=== PATIENT | male | born 1975 | race Caucasian/White ===

== ENCOUNTER 2017-12-25 22:55 | Emergency (ER) | payer SELFPAY ==
[~2017-12-25] VITALS: Ht 182.9 cm; Wt 89.8 kg
[2017-12-25 23:00] VITALS: BP 150/98
[2017-12-25 23:07] VITALS: BP 150/98
--- NOTE | 2017-12-25 23:08 | NUR ---
TO LOBBY, A/W ANA FUNES ,ROSETTE ERMD NOTED
--- NOTE | 2017-12-26 04:00 | NUR ---
PATIENT LEFT WITHOUT BEING SEEN BY DR. Bliss. NO FURTHER CARE PROVIDED FOR PATIENT.
== END 2017-12-26 04:00 | disposition left against medical advice (07) ==
LOC: MED 22:55
DX: M54.9 Dorsalgia, unspecified (principal); Z53.21 Procedure and treatment not carried out due to patient leaving prior to being seen by health care provider
CPT/HCPCS: 72072; 72110; 99281